=== PATIENT | male | born 1990 | race Hispanic/Latino ===

== ENCOUNTER 2018-10-30 10:27 | Emergency (ER) | payer SELFPAY ==
--- NOTE | 2018-10-30 11:39 | RAD ---
CHEST 2 VIEWS: Date: 10/30/18 The heart is normal in size and the lungs are clear. No infiltrate or effusion seen. No current evide nce of pneumonia. IMPRESSION: No acute thoracic findings. POS: HOME
--- NOTE | 2018-10-30 11:44 | RAD ---
SINUSES: Date: 10/30/18 A single Marie view was provided. There is an air fluid level in the left maxillary sinus suggesting acute sinusitis. There is probably some mucosal thickening as well. The right maxillary sinus is jonny ar. It is difficult to fully assess the frontal sinuses. I cannot tell if the lateral and mid portion s of the frontal sinuses are hazy or not. The bony structures appear normal. IMPRESSION: Findings suggesting acute right maxillary sinusitis. POS: HOME
== END 2018-10-30 11:35 | disposition home or self-care (01) ==
LOC: BURERS 10:27
DX: J01.90 Acute sinusitis, unspecified (principal)
CPT/HCPCS: 70210; 71046